=== PATIENT | male | born 1965 | race Caucasian/White ===

== ENCOUNTER 2017-11-08 12:11 | Emergency (ER) | payer BC ==
[2017-11-08 14:20] VITALS: BP 121/77
--- NOTE | 2017-11-08 14:46 | UC ---
Respiratory Complaint HPI - HPI Summary HPI Summary: C/O congestion, sore throat and sinus pain for 3 days. Cough started this morning. - History of Current Complaint Chief Complaint: UCRespiratory Stated Complaint: SINUSES,CONGESTION Time Seen by Provider: 11/08/17 14:38 Hx Obtained From: Patient Onset/Duration: Sudden Onset, Lasting Days - 3, Worse Since - last night Timing: Constant Severity Initially: Mild Severity Currently: Moderate Pain Intensity: 0 Character: Cough: Productive - occasional phlem Associated Signs And Symptoms: Positive: URI, Nasal Congestion, Sinus Discomfort. Negative: Dyspnea, Fever, Wheezing Related History: Seasonal Allergies - Allergies/Home Medications Allergies/Adverse Reactions: Allergies Allergy/AdvReac Type Severity Reaction Status Date / Time No Known Allergies Allergy Verified 11/08/17 14:20 Home Medications: Home Medications BuPROPion XL* [Bupropion XL*] 450 mg PO DAILY 11/08/17 [History Confirmed ] Levothyroxine TAB* [Synthroid 100 MCG TAB*] 100 mcg PO DAILY 11/08/17 [History Confirmed 11/08/17] Testosterone [Testim] 2 gm TD WEEKLY 11/08/17 [History Confirmed 11/08/17] PMH/Surg Hx/FS Hx/Imm Hx Endocrine History: Thyroid Disease Psychological History: Anxiety - Surgical History Surgical History: Yes Surgery Procedure, Year, and Place: gallbladder - Family History Known Family History: Positive: Diabetes Negative: Cardiac Disease, Hypertension - Social History Occupation: Employed Full-time Lives: With Family Alcohol Use: Rare Substance Use Type: None Smoking Status (MU): Never Smoked Tobacco Review of Systems ENT: Sore Throat, Nasal Discharge, Sinus Pain/Tenderness Respiratory: Cough Is Patient Immunocompromised?: No All Other Systems Reviewed And Are Negative: Yes Physical Exam Triage Information Reviewed: Yes Appearance: Well-Appearing, No Pain Distress, Well-Nourished Vital Signs: Initial Vital Signs Temp 98.9 F 11/08/17 14:16 Pulse 76 11/08/17 14:16 Resp 16 11/08/17 14:16 BP 121/77 11/08/17 14:16 Pulse Ox 98 11/08/17 14:16 Vital Signs Reviewed: Yes Eyes: Positive: Conjunctiva Clear ENT: Positive: Pharynx normal, Nasal congestion, TMs normal Neck exam: Normal Respiratory: Positive: Lungs clear, Wheezing - Just with expiratory cough Cardiovascular Exam: Normal Musculoskeletal Exam: Normal Neurological Exam: Normal Psychological Exam: Normal Skin Exam: Normal UC Diagnostic Evaluation - Laboratory O2 Sat by Pulse Oximetry: 98 Respiratory Course/Dx - Differential Dx/Diagnosis Differential Diagnosis/HQI/PQRI: Asthma, Lower Resp Infection, Sinusitis Provider Diagnoses: Acute URI. Acute sinusitis. Acute bronchospasm Discharge - Sign-Out/Discharge Documenting (check all that apply): Discharge/Admit/Transfer - Discharge Plan Condition: Stable Disposition: HOME Prescriptions: Amoxicillin PO (*) [Amoxicillin 875 MG (*)] 875 mg PO BID #20 tab predniSONE [Prednisone 20 MG TAB] 20 mg PO DAILY #18 tablet Patient Education Materials: Sinusitis (ED), Amoxicillin (By mouth), Bronchospasm (ED), Prednisone (By mouth) Referrals: Mahesh Moore DO [Primary Care Provider] - Additional Instructions: NASAL SPRAYS AND DROPS: Afrin in the PUMP/ MIST bottle (Get generic 12 hours nasal decongestant spray). Tilt your head down and look at the floor while doing a strong sniff with the spray. Decongestant nasal sprays and drops often give dramatic relief from congestion. They are often recommended for patients with sinus infection to assist with sinus drainage. Persons with high blood pressure should consult the doctor before using these nasal sprays. Afrin and Hector-Synephrine are common [id number] preparations. They should not be used for more than five days, as "rebound" congestion can occur - - the congestion flares as the drug wears off. A way of dealing with this rebound congestion problem is to medicate only one nostril each time, allowing the other nostril to recover from the medicine' s effects. When you no longer need the drug during the day, spray only one nostril each night. This helps you sleep well without severe rebound congestion. Call the doctor if you develop severe headache, palpitations, or chest pain. NEILMED SINUS RINSE: CHECK OUT AT [employer] Saline nasal wash helps with mucous, allergies and congestion. It can be used up to twice a day or only as needed. Use lukewarm tap water. It does not have to be sterilized or distilled water. Do 1/3 on each side and snort out of both nostrils. Repeat the process with 1/6 of the bottle on each side with snorting in between to finish the solution in the bottle - Billing Disposition and Condition Condition: STABLE Disposition: Home
== END 2017-11-08 15:05 | disposition home or self-care (01) ==
LOC: UCCORT 12:11
DX: J06.9 Acute upper respiratory infection, unspecified (principal); J01.90 Acute sinusitis, unspecified; J98.01 Acute bronchospasm; E07.9 Disorder of thyroid, unspecified
CPT/HCPCS: 99202; G0463

== ENCOUNTER 2018-10-26 19:21 | Emergency (ER) | payer BC ==
[2018-10-26 20:24] VITALS: BP 153/91
[2018-10-26] MEDS ORDERED: Neomyc/Polym/HC 1% OTIC SUSP* **OTIC LEFT EAR ONE (21:13)
[2018-10-26] MEDS ORDERED: predniSONE TAB* 20 MG PO ONE (21:15)
--- NOTE | 2018-10-26 23:03 | UC ---
Ear Complaint HPI - HPI Summary HPI Summary: 53 year old gal[place], no PMH. presents after getting gasoline on L side of face. Patient was under tractor and gas fell onto left eye, ear. Eye/ ear rinsed, eye doing well, no vision changes, mild irritation, L ear with sevee pain, swelling. no hearing changes, no drainage noted. no prior ear complaints. occurred on friday - History of Current Complaint Chief Complaint: UCEar Stated Complaint: LEFT EAR COMPLAINT(GASOLINE IN EAR) Time Seen by Provider: 10/26/18 20:35 Hx Obtained From: Patient Onset/Duration: Sudden Onset, Lasting Days - friday Severity Initially: Severe Severity Currently: Moderate - unable to sleep due to pain Pain Intensity: 8 Pain Scale Used: 0-10 Numeric Alleviating Factors: OTC Meds Associated Signs/Symptoms: Positive: Swelling @. Negative: Discharge, Hearing Loss, Foreign Body Sensation, Trauma to Ear - Allergies/Home Medications Allergies/Adverse Reactions: Allergies Allergy/AdvReac Type Severity Reaction Status Date / Time No Known Allergies Allergy Verified 10/26/18 20:19 PMH/Surg Hx/FS Hx/Imm Hx Previously Healthy: Yes - Surgical History Surgical History: Yes Surgery Procedure, Year, and Place: gallbladder - Family History Known Family History: Positive: Diabetes Negative: Cardiac Disease, Hypertension - Social History Alcohol Use: Rare Substance Use Type: None Smoking Status (MU): Never Smoked Tobacco Review of Systems All Other Systems Reviewed And Are Negative: Yes Constitutional: Negative: Fever, Chills, Fatigue Skin: Positive: Rash, Other - swelling l ear ENT: Positive: Ear Ache Is Patient Immunocompromised?: No Physical Exam Triage Information Reviewed: Yes Appearance: Well-Appearing, No Pain Distress, Well-Nourished Vital Signs: Initial Vital Signs Temp 98.5 F 10/26/18 20:20 Pulse 77 10/26/18 20:20 Resp 16 10/26/18 20:20 BP 153/91 10/26/18 20:20 Pulse Ox 100 10/26/18 20:20 Vital Signs Reviewed: Yes Eyes: Positive: Conjunctiva Clear, Other: - minimal erythema noted L eye. Full EMOI, PERRLA ENT: Positive: Hearing grossly normal, Pharynx normal, TMs normal - right, Other - L ear canal swollen, erythematous, no drainage noted, swollen ~ 80%, able to partially visulize TM behind swelling, appears intact, pearly. + tender to touch over pinnia Ear Complaint Course/Dx - Course Course Of Treatment: - reaction to chemical substance, L ear canal - Ear drops- antibacterial, antifungal, and steroid to help with symptoms/ treatment - Oral steroid dose x 1 to help with pain, inflammation - Continue to take antibiotics until symptoms free x 24 hours - Go to ER with increased symptoms, fever, increased pain; follow up with primary within 1-2 days if no improvement - Prednisone dose x 1 at urgent care to help with swelling - Motrin/ Tylenol as needed for pain - Differential Dx/Diagnosis Provider Diagnosis: Inflammation of ear canal Discharge - Sign-Out/Discharge Documenting (check all that apply): Patient Departure All imaging exams completed and their final reports reviewed: No Studies - Discharge Plan Condition: Good Disposition: HOME Patient Education Materials: Chemical Skin Burn (ED) Referrals: Mahesh Moore DO [Primary Care Provider] - Additional Instructions: - Continue to take antibiotics until symptoms free x 24 hours - Go to ER with increased symptoms, fever, increased pain; follow up with primary within 1-2 days if no improvement - Prednisone dose x 1 at urgent care to help with swelling - Motrin/ Tylenol as needed for pain - Billing Disposition and Condition Condition: GOOD Disposition: Home
== END 2018-10-26 21:24 | disposition home or self-care (01) ==
LOC: UCCORT 19:21
DX: T52.0X1A Toxic effect of petroleum products, accidental (unintentional), initial encounter (principal); T20.41 Corrosion of unspecified degree of ear [any part, except ear drum]; Y92.9 Unspecified place or not applicable
CPT/HCPCS: 99212; A9270-GY; G0463; J7512